=== PATIENT | female | born 1945 | race African-American/Black ===

== ENCOUNTER 2016-08-28 12:48 | Inpatient (IN) | payer MEDICARE, SELFPAY ==
[~2016-08-28] VITALS: Ht 162.6 cm; Wt 72.6 kg
[~2016-08-28 12:48] MED LIST: AZITHROMYCIN250 MG ORAL; PREDNISONE50 MG ORAL
--- NOTE | 2016-08-28 13:05 | Emergency Room Report ---
History of Present Illness General Chief Complaint: Overdose Source: Patient, EMS Present Illness HPI Patient was brought into the ER after a syncopal episode Patient reports feeling somewhat lightheaded and the next day she knows paramedics were at bedside Patient wasn't sure she took too many of her pain medications at the same time she does take pain medicine for shoulder pain Paramedics did provide patient with Narcan, to which the patient had acute reaction and GCS improved Denies any headache She had some shortness of breath sensation at this time denies any vomiting or diarrhea She has had increased swelling in her legs patient usually resides in [place] Denies any back or flank pain Allergies: Coded Allergies: No Known Allergies (Verified , 04/29/09) Patient History Past Medical History: see triage record Pertinent Family History: none Reviewed Nursing Documentation: PMH: Agreed, PSxH: Agreed Nursing Documentation-PMH Past Medical History: No History, Except For Hx Hypertension: Yes Hx COPD: Yes Hx Diabetes: Yes Review of Systems All Other Systems: negative except mentioned in HPI Physical Exam Vital Signs Date Time Temp Pulse Resp B/P Pulse Ox O2 Delivery O2 Flow Rate FiO2 08/28/16 12:42 98.2 83 16 116/78 94 Room Air Sp02 EP Interpretation: reviewed, normal General Appearance: no apparent distress Head: normocephalic, atraumatic Eyes: bilateral eye EOMI, bilateral eye PERRL ENT: hearing grossly normal, normal pharynx, TMs + canals normal, uvula midline Neck: full range of motion, supple, no meningismus, no bony tend Respiratory: no rhonchi, no retraction, no accessory muscle use, crackles - Along with wheezing bilaterally Cardiovascular #1: normal peripheral pulses, regular rate, rhythm, no gallop, no JVD, no murmur Gastrointestinal: normal bowel sounds, non tender, soft, no mass, no organomegaly, non-distended, no guarding, no hernia, no pulsatile mass, no rebound Genitourinary: no CVA tenderness Musculoskeletal: normal inspection Neurologic: oriented x3, responsive, slasher hand III-XII nml as tested, motor strength/ tone normal, sensory intact Psychiatric: mood/affect normal Skin: palpation normal, other - 2/4 Pain bilaterally Lymphatic: normal inspection, no adenopathy Medical Decision Making Diagnostic Impression: Primary Impression: Drug overdose Additional Impressions: Chronic renal failure COPD exacerbation Syncope Hyperkalemia ER Course Patient is a fairly complex patient with multiple differential to consideration including but not limited to cardiac cardiopulmonary and vascular emergencies Patient has done significantly better, at this time remains awake and alert Kidney function appears to be worsening from previous Potassium was also elevated Patient appears to have compensated mild CO2 retention Patient was provided with acute intervention her Stable for further inpatient care Labs Test 08/28/16 13:20 08/28/16 13:55 White Blood Count 7.3 K/UL (4.8-10.8) Red Blood Count 5.44 M/UL (4.20-5.40) Hemoglobin 13.9 G/DL (12.0-16.0) Hematocrit 45.6 % (37.0-47.0) Mean Corpuscular Volume 84 FL (80-99) Mean Corpuscular Hemoglobin 25.5 PG (27.0-31.0) Mean Corpuscular Hemoglobin Concent 30.4 G/DL (32.0-36.0) Red Cell Distribution Width 14.5 % (11.6-14.8) Platelet Count 104 K/UL (150-450) Mean Platelet Volume 9.9 FL (6.5-10.1) Neutrophils (%) (Auto) 78.8 % (45.0-75.0) Lymphocytes (%) (Auto) 13.3 % (20.0-45.0) Monocytes (%) (Auto) 6.3 % (1.0-10.0) Eosinophils (%) (Auto) 1.0 % (0.0-3.0) Basophils (%) (Auto) 0.6 % (0.0-2.0) Sodium Level 142 mEQ/L (135-145) Potassium Level 5.2 mEQ/L (3.4-4.9) Chloride Level 98 mEQ/L (98-107) Carbon Dioxide Level 23 mEQ/L (20-30) Anion Gap 21 (5-15) Blood Urea Nitrogen 53 mg/dL (7-23) Creatinine 2.2 mg/dL (0.5-0.9) Estimat Glomerular Filtration Rate 26.7 mL/min (>60) Glucose Level 162 mg/dL (74-106) Calcium Level 8.9 mg/dL (8.6-10.2) Total Bilirubin 0.3 mg/dL (0.0-1.2) Aspartate Amino Transf (AST/SGOT) 34 U/L (5-40) Alanine Aminotransferase (ALT/SGPT) 17 U/L (3-33) Alkaline Phosphatase 129 U/L (35-104) Total Creatine Kinase 58 U/L (26-140) Troponin I < 0.30 ng/mL (<=0.30) Total Protein 7.0 g/dL (6.6-8.7) Albumin 3.8 g/dL (3.5-5.2) Globulin 3.2 g/dL Albumin/Globulin Ratio 1.1 (1.0-2.7) Salicylates Level < 1 mg/dL (10-30) Acetaminophen Level < 10 ug/mL (10-30) Serum Alcohol < 10 mg/dL Arterial Blood pH 7.370 (7.350-7.450) Arterial Blood Partial Pressure CO2 53.2 mmHg (35.0-45.0) Arterial Blood Partial Pressure O2 53.2 mmHg (75.0-100.0) Arterial Blood HCO3 30.1 mmol/L (22.0-26.0) Arterial Blood Oxygen Saturation 86.0 % (92.0-98.0) Arterial Blood Base Excess 3.5 Yousuf Test Positive EKG Diagnostic Results Rate: normal Rhythm: NSR ST Segments: other - nonspecific ST and T-wave changes Rhythm Strip Diag. Results EP Interpretation: yes Rate: 66 Rhythm: NSR, no PVC's, no ectopy Chest X-Ray Diagnostic Results EP Interpretation: Yes Findings: no pneumothorax, other - Bilateral lower lung markings, increased congestion and cardiomegaly, abnormal x-ray Last Vital Signs Date Time Temp Pulse Resp B/P Pulse Ox O2 Delivery O2 Flow Rate FiO2 08/28/16 12:42 98.2 83 16 116/78 94 Room Air Status: improved Disposition: ADMITTED INPATIENT Condition: Serious Referrals: NOT CHOSEN ONEIL/,REFERRING (PCP) DAVON JOSUE D.O. Aug 28, 2016 13:05
[2016-08-28] MEDS ORDERED: Albuterol ud Inhalation HHN ONE (13:15)
[2016-08-28 13:36] LABS: BASOPHILS % (AUTO) 0.6 % (0.0-2.0); LYMPHOCYTES % (AUTO) 13.3 % (20.0-45.0); MEAN CORPUSCULAR HEMOGLOBIN 25.5 PG (27.0-31.0); MEAN CORPUSCULAR HGB CONC 30.4 G/DL (32.0-36.0); MEAN CORPUSCULAR VOLUME 84 FL (80-99); MEAN PLATELET VOLUME 9.9 FL (6.5-10.1); MONOCYTES % (AUTO) 6.3 % (1.0-10.0); NEUTROPHILS % (AUTO) 78.8 % (45.0-75.0); PLATELET COUNT 104 K/UL (150-450); RED BLOOD COUNT 5.44 M/UL (4.20-5.40); RED CELL DISTRIBUTION WIDTH 14.5 % (11.6-14.8); WHITE BLOOD COUNT 7.3 K/UL (4.8-10.8)
[2016-08-28 14:00] VITALS: BP 121/82
[2016-08-28 14:02] LABS: TROPONIN I < 0.30 ng/mL (<=0.30)
[2016-08-28 14:03] LABS: ABG ALLEN TEST POSITIVE; ABG BASE EXCESS 3.5; ABG PCO2 53.2 mmHg (35.0-45.0)
[2016-08-28 14:06] LABS: ACETAMINOPHEN < 10 ug/mL (10-30); ALANINE AMINOTRANSFERASE 17 U/L (3-33); ALBUMIN/GLOBULIN RATIO 1.1 (1.0-2.7); ALCOHOL < 10 mg/dL; ANION GAP 21 (5-15); ASPARTATE AMINO TRANSFERASE 34 U/L (5-40); CALCIUM 8.9 mg/dL (8.6-10.2); CARBON DIOXIDE 23 mEQ/L (20-30); CHLORIDE 98 mEQ/L (98-107); CREATININE 2.2 mg/dL (0.5-0.9); GLOMERULAR FILTRATION RATE 26.7 mL/min (>60); HEMOLYSIS 127; POTASSIUM 5.2 mEQ/L (3.4-4.9); SODIUM 142 mEQ/L (135-145)
[2016-08-28] MEDS ORDERED: OXYCODON-ACETA1 EAC2 ORAL (14:08)
[2016-08-28] MEDS ORDERED: XANAX2 MG ORAL (14:08)
[2016-08-28] MEDS ORDERED: LYRICA75 M1 ORAL (14:08)
[2016-08-28] MEDS ORDERED: CARVEDILOL25 MG ORAL (14:08)
[2016-08-28] MEDS ORDERED: POTASSIUM99 M3 PO (14:08)
[2016-08-28] MEDS ORDERED: FUROSEMIDE40 MG ORAL (14:08)
[2016-08-28] MEDS ORDERED: [UNRECOGNIZED DRUG - REMARK] (14:08)
[2016-08-28] MEDS ORDERED: [UNRECOGNIZED DRUG - REMARK] (14:08)
[2016-08-28] MEDS ORDERED: ASPIRIN81 MG ORAL (14:08)
[2016-08-28] MEDS ORDERED: Sodium Polystyrene Sulfonate 15gm Powder ORAL ONE (14:15)
[2016-08-28 14:45] VITALS: BP 131/71
[2016-08-28 16:30] VITALS: BP 130/70
[2016-08-28] MEDS ORDERED: DuoNeb 0.5-3(2.5)mg/3ml neb HHN PRN (17:30)
[2016-08-28] MEDS: Carvedilol 25mg Tab ORAL SCH ×2 (17:54→21:00)
[2016-08-28] MEDS: Lyrica 75mg cap ORAL SCH (17:55)
[2016-08-28 20:00] VITALS: BP 113/75
[2016-08-28] MEDS: Heparin 5000 units/ml inj SUBQ SCH (21:00)
[2016-08-29] VITALS: BP_SYST 105; BP_SYST 140; BP_DIAS 53; BP_DIAS 73
[2016-08-29 04:00] VITALS: BP 110/58
[2016-08-29 07:30] LABS: ALBUMIN/GLOBULIN RATIO 1.2 (1.0-2.7); CALCIUM 8.3 mg/dL (8.6-10.2); CREATININE 2.1 mg/dL (0.5-0.9); GLOMERULAR FILTRATION RATE 28.2 mL/min (>60); POTASSIUM 3.5 mEQ/L (3.4-4.9)
[2016-08-29 07:37] LABS: BASOPHILS % (AUTO) 0.6 % (0.0-2.0); MEAN CORPUSCULAR HEMOGLOBIN 25.8 PG (27.0-31.0); MEAN CORPUSCULAR HGB CONC 30.7 G/DL (32.0-36.0); MEAN CORPUSCULAR VOLUME 84 FL (80-99); MEAN PLATELET VOLUME 9.4 FL (6.5-10.1); MONOCYTES % (AUTO) 9.6 % (1.0-10.0); NEUTROPHILS % (AUTO) 59.8 % (45.0-75.0); PLATELET COUNT 117 K/UL (150-450); RED BLOOD COUNT 4.99 M/UL (4.20-5.40); RED CELL DISTRIBUTION WIDTH 14.7 % (11.6-14.8); WHITE BLOOD COUNT 6.3 K/UL (4.8-10.8)
[2016-08-29 07:42] LABS: TROPONIN I < 0.30 ng/mL (<=0.30)
[2016-08-29 08:00] VITALS: BP 134/77
--- NOTE | 2016-08-29 08:29 | History and Physical Report ---
DATE OF ADMISSION: 08/28/2016 CHIEF COMPLAINT: Syncope. HISTORY OF PRESENT ILLNESS: The patient is a 71-year-old female, she has a history of hypertension, congestive heart failure, "kidney problems" who presented with complaints of a syncopal episode. She is currently visiting from [place]. She is with her daughter who is being . On the day of admission, she was on the couch and she apparently had a syncopal episode. She remembers only waking up in the ambulance. Initial workup in the emergency room showed some renal insufficiency, but the rest of the laboratory work was unremarkable. She was noted to have elevated natriuretic peptide level 4000. She is now admitted for further evaluation and care. According to the patient, she has had a productive cough with green phlegm for several days, but she states she has been eating and drinking well. She denies any diarrhea. She has had no nausea or vomiting. PAST MEDICAL HISTORY: As above. PAST SURGICAL HISTORY: None. MEDICATIONS: Current medications reconciled and reviewed. ALLERGIES: None. SOCIAL HISTORY: The patient smokes cigarettes. No alcohol. No drugs. FAMILY HISTORY: None. REVIEW OF SYSTEMS: General: No fever or chills. HEENT: No headaches or visual changes. Cardiopulmonary: No chest pain or shortness of breath. Gastrointestinal: No nausea or frequency. Musculoskeletal: No dependent swelling. Neurologic: No history of seizures. PHYSICAL EXAMINATION: VITAL SIGNS: Temperature 98.0 degrees, blood pressure 110/58, pulse of 57, and respirations 20. GENERAL: The patient is a well-developed, well-nourished, in no apparent distress. HEART: Regular rate and rhythm. LUNGS: Significant for rhonchi and wheezes. ABDOMEN: Soft, nontender, and nondistended. EXTREMITIES: Without clubbing, cyanosis, or edema. LABORATORY DATA: Sodium 142, potassium 5.2, chloride of 98, bicarbonate 23, BUN 53, creatinine 2.2, and glucose of 162. Natriuretic peptide level is 3800. ABG showed pH of 7.37, pCO2 of 53, pO2 of 53, bicarbonate of 50, and O2 saturating 86%. The white count was 7, hemoglobin 13, hematocrit 45, and platelets of 104,000. ASSESSMENT: This is a pleasant female with complaints of syncope. 1. Syncope. 2. Dehydration. 3. Acute on chronic renal failure. 4. Elevated natriuretic peptide acid. 5. History of congestive heart failure. 6. Hypertension. 7. Bronchospasm. PLAN: Cautious hydration. Follow chest x-ray. Check her carotid duplex and echocardiogram. Check venous duplex. Supplemental oxygen. Respiratory treatments. Empiric antibiotic therapy. Cardiology and Pulmonary consultations were obtained. Bertin Ruggiero M.D. DR: Barbara JOB#: [id number] CC:
[2016-08-29] MEDS: cefTRIAXone 1 GM in D5W 55 ML IVPB SCH (08:52)
[2016-08-29] MEDS: Carvedilol 25mg Tab ORAL SCH ×2 (08:53→22:00)
[2016-08-29] MEDS: Aspirin Baby 81mg ORAL SCH (08:53)
[2016-08-29] MEDS: Heparin 5000 units/ml inj SUBQ SCH ×2 (08:53→22:14)
[2016-08-29] MEDS: Lyrica 75mg cap ORAL SCH ×3 (08:54→17:46)
[2016-08-29] MEDS: Promethazine/Codeine 5ml UD ORAL PRN ×3 (08:56→22:15)
[2016-08-29] MEDS ORDERED: Influenza Virus Vaccine 0.5ml IM ONE (09:00)
[2016-08-29] MEDS ORDERED: Pneumococcal Vaccine 25mcg/0.5ml IM ONE (09:00)
[2016-08-29] MEDS: DuoNeb 0.5-3(2.5)mg/3ml neb HHN SCH ×3 (10:17→19:00)
[2016-08-29] MEDS: Oxycodone/Acetaminophen 5-325 ORAL PRN ×3 (10:18→22:15)
[2016-08-29 12:00] VITALS: BP 125/77
--- NOTE | 2016-08-29 12:23 | Cardiology Report ---
APPROVED REPORT EKG Measurement Heart [id number] Normal sinus rhythm Rightward axis Possible Anterior infarct, age undetermined Abnormal ECG
[2016-08-29 16:00] VITALS: BP 116/67
[2016-08-29 20:00] VITALS: BP 116/64
[2016-08-30] VITALS: BP 127/79
[2016-08-30] MEDS: DuoNeb 0.5-3(2.5)mg/3ml neb HHN SCH ×4 (01:00→19:00)
--- NOTE | 2016-08-30 02:19 | Consultation ---
DATE OF CONSULTATION: 08/28/2016 CARDIOLOGY CONSULTATION CONSULTING PHYSICIAN: Misha Koo M.D. REQUESTING PHYSICIAN: Bertin Ruggiero M.D. REASON FOR CONSULTATION: Syncope in the setting of underlying cardiomyopathy. HISTORY OF PRESENT ILLNESS: This is a 71-year-old female, visiting her daughter from [place]. She was lightheaded earlier today and then was lying down on the couch, apparently passed out, and the next thing she knew was in ambulance with paramedics. She recalls taking almost all her medications together that morning including a pain medication. The patient was given Narcan by the paramedics and apparently had a reaction. She was alert however. She has had increasing swelling in her legs for several days. She also has had some shortness of breath. The patient has been undergoing a cardiac workup in [place] prior to her trip here. She has had many tests "ordered." So far, she completed only dobutamine echocardiogram, but does not know the results. Other tests were scheduled next week. PAST MEDICAL HISTORY: 1. Hypertension. 2. Cardiomyopathy. 3. History of congestive heart failure. 4. Chronic obstructive pulmonary disease. 5. Type 2 diabetes mellitus. 6. Chronic kidney disease. ALLERGIES: None. FAMILY HISTORY: Noncontributory. SOCIAL HISTORY: She denies smoking, alcohol, or substance abuse at this time. REVIEW OF SYSTEMS: She did have a cold with congestion recently. No fevers or chills. No loss of vision or hearing. No history of retinopathy. Diabetes managed with oral therapy. No history of seizures or strokes. No dysuria or frequency. She does have some mild kidney disease. There is no history of asthma or blood clots in the legs. PHYSICAL EXAM: GENERAL: Appears well for her age. Presently, in no acute distress, VITAL SIGNS: Blood pressure 116/78, pulse 83, respirations 16, and afebrile. Oxygen saturation 94% on room air. HEENT: Normocephalic and atraumatic. Conjunctivae pink. Sclerae are anicteric. Oropharynx clear. Mucous membranes dry. NECK: Supple. Jugular venous pressure normal. Carotid upstrokes without delay. LUNGS: Diminished breath sounds. No wheezing. CARDIAC: Regular rhythm and rate. Normal S1 and S2 with a fourth heart sound. ABDOMEN: Soft and nontender. No guarding or rebound. EXTREMITIES: Good pulses and trace edema. LABORATORY AND DIAGNOSTIC DATA: EKG, sinus rhythm, rightward axis, possible anterior infarction of indeterminate age, and nonspecific ST-T wave changes. Sodium 142, potassium 5.2, BUN 53, creatinine 2.2, and bicarb 23. Troponin negative. Albumin 3.8. White count 7.3 and hemoglobin 13.9. IMPRESSION: 1. Syncope, possibly due to hypovolemia and hypoperfusion. 2. Acute on chronic renal failure with prerenal azotemia. 3. Mild hyperkalemia. 4. Cardiomyopathy. 5. Acute and chronic diastolic congestive heart failure. PLAN: 1. Cautious hydration. 2. No diuretics. 3. Cardiac monitoring. 4. Anti-platelet therapy with aspirin. 5. DVT prophylaxis. 6. We will attempt to obtain results of recent cardiac workup. May need to pursue further cardiac ischemia studies prior to discharge. Misha Koo M.D. DR: ELGIN JOB#: [id number] CC:
--- NOTE | 2016-08-30 02:59 | Progress Note ---
DATE: 08/29/2016 CARDIOLOGY PROGRESS NOTE SUBJECTIVE: The patient reaffirmed that on cardiac workup has been in progress in [place]. She had a stress echo study with dobutamine but she does not know the results. Several other studies are scheduled and planned, which she has not completed. The patient denies chest pain, dizziness, or shortness of breath. Monitored rhythm, sinus. OBJECTIVE: VITAL SIGNS: Blood pressure 116/64, heart rate 60, and respirations 18. She is afebrile. NECK: Supple. Normal carotid upstrokes. LUNGS: Clear. CARDIAC: Regular rhythm and rate. Normal S1 and S2 with a fourth heart sound. ABDOMEN: Soft and nontender. EXTREMITIES: Without edema. LABORATORY AND DIAGNOSTIC DATA: Electrocardiogram showed sinus rhythm, left ventricular hypertrophy with repolarization changes, cannot exclude inferolateral ischemia. White count 6.3 and hemoglobin 12.9. Potassium 3.5, sodium 146, bicarbonate 30, BUN 49, and creatinine 2.1. Pro-natriuretic peptide was 3889 yesterday. Albumin is 3.3. IMPRESSION: 1. Syncope possibly due to hypovolemia and hypoperfusion. 2. Dehydration. 3. Hypernatremia. 4. Acute on chronic diastolic congestive heart failure. 5. Mild protein-calorie malnutrition. 6. Cardiomyopathy etiology unclear. PLAN: 1. Continue aspirin prophylaxis. 2. Cautious use of beta-jorge. 3. Cautiously hydrate. 4. No diuretics at this time. 5. Reassess for angiotensin-converting enzyme inhibitor therapy once rehydrated. 6. Followup cardiorenal parameters. Misha Koo M.D. DR: MILI JOB#: [id number] CC:
[2016-08-30 04:00] VITALS: BP 162/86
[2016-08-30] MEDS: Oxycodone/Acetaminophen 5-325 ORAL PRN ×3 (05:43→16:25)
--- NOTE | 2016-08-30 06:00 | General Progress Note ---
Assessment/Plan Problem List: (1) COPD exacerbation (2) acute bronchitis (3) Chronic renal failure (4) Hyperkalemia ICD Codes: E87.5 - Hyperkalemia SNOMED: 54051586 (5) Syncope ICD Codes: R55 - Syncope and collapse SNOMED: 750783824 Status: stable, progressing Assessment/Plan iv steroids resp rx iv abx ordered syncope w/u in progress Subjective ROS Limited/Unobtainable: No Constitutional: Reports: malaise, weakness HEENT: Reports: no symptoms Cardiovascular: Reports: chest pain Respiratory: Reports: cough, shortness of breath, wheezing Gastrointestinal/Abdominal: Reports: no symptoms Genitourinary: Reports: no symptoms Neurologic/Psychiatric: Reports: no symptoms Endocrine: Reports: no symptoms Hematologic/Lymphatic: Reports: no symptoms Allergies: Coded Allergies: No Known Allergies (Verified , 04/29/09) All Systems: reviewed and negative except above Subjective no dizziness. c/o right sided CP. +reproducible. no dizziness. +congestion Objective Last 24 Hour Vital Signs Date Time Temp Pulse Resp B/P Pulse Ox O2 Delivery O2 Flow Rate FiO2 08/30/16 03:08 62 20 Nasal Cannula 2.0 28 08/30/16 01:30 20 08/30/16 01:30 20 08/30/16 00:00 98.6 70 18 127/79 97 Nasal Cannula 2.0 08/30/16 00:00 66 08/29/16 22:00 60 116/64 08/29/16 20:00 61 08/29/16 20:00 97.5 60 18 116/64 98 Room Air 08/29/16 19:30 Nasal Cannula 2.0 28 08/29/16 19:30 70 20 95 Nasal Cannula 2.0 28 08/29/16 19:30 60 20 94 Nasal Cannula 2.0 28 08/29/16 19:30 97 Nasal Cannula 2.0 28 08/29/16 19:30 62 20 Nasal Cannula 2.0 28 08/29/16 18:45 97.5 08/29/16 18:45 97.5 08/29/16 16:00 70 08/29/16 16:00 97.3 60 18 116/67 Nasal Cannula 08/29/16 13:28 28 08/29/16 13:28 60 19 96 Nasal Cannula 2.0 28 08/29/16 13:28 65 20 96 Nasal Cannula 2.0 28 08/29/16 12:00 97.0 55 18 125/77 95 Nasal Cannula 2.0 08/29/16 12:00 54 08/29/16 10:26 67 20 97 Nasal Cannula 2.0 28 08/29/16 10:17 97 Nasal Cannula 2.0 28 08/29/16 10:17 Nasal Cannula 2.0 28 08/29/16 10:17 64 19 97 Nasal Cannula 2.0 28 08/29/16 10:17 64 19 Nasal Cannula 2.0 28 08/29/16 10:17 28 08/29/16 08:53 68 134/77 08/29/16 08:00 59 08/29/16 08:00 96.8 68 18 134/77 97 Nasal Cannula 2.0 Intake and Output 08/29/16 08/30/16 19:00 07:00 Intake Total 1315 ml 300 ml Output Total 520 ml 900 ml Balance 795 ml -600 ml Intake Oral 680 ml IV Total 635 ml 300 ml Output Urine Total 520 ml 900 ml Height (Feet): 5 Height (Inches): 4.00 Weight (Pounds): 160 General Appearance: WD/WN Neck: normal alignment Cardiovascular: normal rate Respiratory/Chest: rhonchi - bilaterally, expiratory wheezing, other - reproducible right sided chest wall pain Abdomen: normal bowel sounds, non tender, soft, no organomegaly Edema: no edema noted Arm (L), no edema noted Arm (R), no edema noted Leg (L), no edema noted Leg (R), no edema noted Pedal (L), no edema noted Pedal (R), no edema noted Generalized ERMIAS MATTA Aug 30, 2016 06:00
[2016-08-30] MEDS: Solu-MEDROL 40mg Inj IVP SCH ×3 (06:24→17:59)
[2016-08-30] MEDS: Aspirin Baby 81mg ORAL SCH (08:24)
[2016-08-30] MEDS: Heparin 5000 units/ml inj SUBQ SCH ×2 (08:26→21:23)
[2016-08-30] MEDS: Promethazine/Codeine 5ml UD ORAL PRN (08:28)
[2016-08-30] MEDS: Carvedilol 25mg Tab ORAL SCH ×2 (08:29→21:21)
[2016-08-30] MEDS: Lyrica 75mg cap ORAL SCH ×3 (08:31→18:01)
[2016-08-30 08:35] VITALS: BP 151/73
[2016-08-30] MEDS: cefTRIAXone 1 GM in D5W 55 ML IVPB SCH (09:30)
[2016-08-30 11:41] VITALS: BP 149/72
--- NOTE | 2016-08-30 12:56 | Diagnostic Imaging Report ---
Indication: SOB Technique: One view of the chest Comparison: : 08/05/13 Findings: The patient is slightly rotated to the right. There is some fullness to the left pulmonary hilar region, probably exaggerated by the patient rotation. Is mild central interstitial prominence and bronchial wall thickening. End of atelectasis or scarring is seen in the right midlung. No definite acute infiltrates, effusions, or congestion. The heart size is normal Impression: No definite acute process. Findings as noted This agrees with the preliminary interpretation provided by the emergency room physician
--- NOTE | 2016-08-30 12:57 | Diagnostic Imaging Report ---
Indication: Acute renal failure Technique: Grayscale and duplex images of the kidneys, retroperitoneum, and bladder were obtained. Comparison:None Findings: Right kidney measures 8 cm in length. Left kidney measures 10 cm in length. Right kidney demonstrates slightly increased echogenicity. No hydronephrosis. Left kidney demonstrates a 16 mm lower pole cyst. Normal inferior vena cava. Bladder is empty, contains a Colón catheter. Impression: Negative for hydronephrosis Mildly increased right renal echogenicity, could indicate early medical renal disease Empty bladder, containing a Colón catheter Incidental finding left lower pole renal cyst.
[2016-08-30 16:00] VITALS: BP 150/69
[2016-08-30] MEDS ORDERED: Tubing IV Secondary IV ONE (18:41)
[2016-08-30 20:00] VITALS: BP 122/90
[2016-08-31 00:27] VITALS: BP 165/94
[2016-08-31] MEDS: Solu-MEDROL 40mg Inj IVP SCH ×2 (00:36→05:33)
[2016-08-31] MEDS: DuoNeb 0.5-3(2.5)mg/3ml neb HHN SCH ×2 (01:55→08:00)
--- NOTE | 2016-08-31 03:49 | Progress Note ---
DATE: 08/30/2016 CARDIOLOGY PROGRESS NOTE SUBJECTIVE: The patient denies dizziness. No loss of consciousness. She has discomfort in her right chest. She is congested and coughing. OBJECTIVE: VITAL SIGNS: Blood pressure 127/79, heart rate 70, respiratory rate 18, afebrile. Monitored rhythm sinus. LUNGS: Coarse breath sounds. Few rhonchi. Reproducible right chest wall pain. HEART: Regular rhythm and rate. Normal S1, S2 with a fourth heart sound. ABDOMEN: Soft. No edema. DIAGNOSTIC DATA: Carotid duplex scan reveals mild plaquing bilaterally, less than 30%. IMPRESSION: 1. Acute on chronic renal failure. 2. Vasovagal syncope. 3. Acute bronchitis. 4. Chronic obstructive pulmonary disease exacerbation. 5. Noncardiac/pleuritic chest pain. 6. Abnormal EKG. 7. Hypertensive heart disease. 8. Possible coronary artery disease. PLAN: Echocardiogram. Titrate anti-failure and antihypertensives. Steroids. Bronchodilators. Obtain records to assess recent stress echo results. Cautious hydration. Follow up renal function. Misha Koo M.D. DR: Rossy JOB#: [id number] CC:
[2016-08-31 04:22] VITALS: BP 142/78
[2016-08-31] MEDS: Oxycodone/Acetaminophen 5-325 ORAL PRN ×2 (05:33→10:10)
[2016-08-31 08:01] LABS: MEAN CORPUSCULAR HEMOGLOBIN 26.1 PG (27.0-31.0); MEAN CORPUSCULAR HGB CONC 30.1 G/DL (32.0-36.0); MEAN CORPUSCULAR VOLUME 87 FL (80-99); MEAN PLATELET VOLUME 7.9 FL (6.5-10.1); PLATELET COUNT 131 K/UL (150-450); RED BLOOD COUNT 5.06 M/UL (4.20-5.40); RED CELL DISTRIBUTION WIDTH 14.1 % (11.6-14.8); WHITE BLOOD COUNT 12.6 K/UL (4.8-10.8)
[2016-08-31 08:04] VITALS: BP 134/79
[2016-08-31 08:20] LABS: CREATININE 1.9 mg/dL (0.5-0.9); GLOMERULAR FILTRATION RATE 31.6 mL/min (>60); MAGNESIUM 1.3 mg/dL (1.7-2.5); POTASSIUM 3.6 mEQ/L (3.4-4.9)
[2016-08-31] MEDS ORDERED: LEVAQUIN250 M1 ORAL (08:28)
[2016-08-31 08:59] VITALS: BP 134/79
[2016-08-31] MEDS: Lyrica 75mg cap ORAL SCH (08:59)
[2016-08-31] MEDS: Aspirin Baby 81mg ORAL SCH (08:59)
[2016-08-31] MEDS: Carvedilol 25mg Tab ORAL SCH (08:59)
[2016-08-31] MEDS: Heparin 5000 units/ml inj SUBQ SCH (09:00)
[2016-08-31] MEDS: cefTRIAXone 1 GM in D5W 55 ML IVPB SCH (09:00)
[2016-08-31] MEDS: Promethazine/Codeine 5ml UD ORAL PRN (09:02)
[2016-08-31 10:42] LABS: BAND NEUTROPHILS % (MANUAL) 1 % (0-8); BASOPHILS % (MANUAL) 0 % (0-2); EOSINOPHILS % (MANUAL) 0 % (0-3); LYMPHOCYTES % (MANUAL) 8 % (20-45); NEUTROPHILS % (MANUAL) 90 % (45-75); PLATELET ESTIMATE DECREASED; PLATELET MORPHOLOGY NORMAL; TOTAL CELLS COUNTED 100
[2016-08-31 10:43] LABS: HYPOCHROMASIA 1+
--- NOTE | 2016-08-31 22:00 | Discharge Summary ---
DATE OF ADMISSION: 08/28/2016 DATE OF DISCHARGE: 08/31/2016 ADMISSION DIAGNOSES: 1. Syncope. 2. Dehydration. 3. Chronic kidney disease. 4. Hypertension. 5. History of neuropathy. 6. Chronic obstructive pulmonary disease. DISCHARGE DIAGNOSES: 1. Syncope. 2. Dehydration. 3. Chronic kidney disease. 4. Hypertension. 5. History of neuropathy. 6. Chronic obstructive pulmonary disease. 7. Bronchitis. HOSPITAL COURSE: The patient is a pleasant female, who presented with a syncopal episode while on the couch. She was admitted and she was diagnosed with chronic obstructive pulmonary disease exacerbation. She received intravenous steroids and respiratory treatments. She was placed on antibiotics. X-ray was negative. She was seen by Cardiology and felt that the syncope was likely vasovagal, possibly in combination with some of her medications. It was recommended that the patient undergo an echo and a stress test, which she declined stating that she has an appointment already in two days with her [facility] in [place] and she requested that the test to be done as an outpatient with her [facility], who apparently had already scheduled the procedure. She was offered the procedure here, but she declined. The patient was stable. She will be discharged on oral steroids and oral antibiotics. Her son will drive her back home where she will follow up with her [facility] on Monday. DISCHARGE MEDICATIONS: Please see discharge medication list for discharge medications. DIET: Cardiac diet. ACTIVITIES: Ad-valery. Bertin Ruggiero M.D. DR: BETI JOB#: [id number] CC:
--- NOTE | 2016-09-01 02:09 | Progress Note ---
DATE: 08/31/2016 CARDIOLOGY PROGRESS NOTE: SUBJECTIVE: The patient has no chest pain. No shortness of breath. She remains off diuretics. She has been hydrated by IV fluids. Her renal function has improved, however, her natriuretic peptide levels have increased. OBJECTIVE: VITAL SIGNS: Blood pressure 134/79, heart rate 67, respiratory rate 18, and room air oxygen saturation 94% to 98%. LUNGS: Clear. CARDIAC: Regular rhythm and rate. Normal S1 and S2 with a fourth heart sound. ABDOMEN: Soft. No edema. LABORATORY DATA: Potassium 3.6, BUN 41, creatinine 1.9. Pro-natriuretic peptide 12,000. Magnesium 1.3. IMPRESSION: 1. Syncope, likely due to dehydration and hypovolemia. 2. Acute on chronic renal failure due to above. 3. Hypertensive heart disease with controlled blood pressure. 4. Acute on chronic diastolic congestive heart failure. 5. Chronic obstructive pulmonary disease. PLAN: We will need to have a close balance between volume overload versus hypovolemic status in this clinical setting. The patient obviously had some underlying kidney disease and diastolic dysfunction. At this time, I do not recommend resumption of diuretics. She will follow up to complete her cardiac workup with her primary product safety lead that will include an ischemia workup as well, which has been partially completed and the results of which are not known to us presently. The patient will be on oral magnesium replacement and steroid taper. She has been advised to seek close regular medical followup. Misha Koo M.D. DR: Rossy JOB#: [id number] CC:
--- NOTE | 2016-09-02 21:48 | Diagnostic Imaging Report ---
APPROVED REPORT CPT Code: 05867 Vascular Symptoms Syncope Doppler Spectral Velocity Analysis RightLeft BILATERAL: CCA - Imaging reveals no significant plaque in the right and left common external carotid arteries. The Doppler signal indicates the degree of stenosis is minimal (30%) in the right internal and external carotid arteries, and (10-20%) in the left internal and external carotid arteries. VERTEBRAL- The vertebral arteries are patent without evidence of stenosis or steal.
== END 2016-08-31 10:14 | disposition home or self-care (01) | DRG 640 ==
LOC: EDBD 12:48 → EDSEX 12:48 → EMR 13:01 → 2E 13:07 → EDBEDREQ 13:33 → 2E 08-30 00:28
DX: E86.0 Dehydration (principal); I50.33 Acute on chronic diastolic (congestive) heart failure; N17.9 Acute kidney failure, unspecified; J44.0 Chronic obstructive pulmonary disease with (acute) lower respiratory infection; E44.1 Mild protein-calorie malnutrition; I42.9 Cardiomyopathy, unspecified; G62.9 Polyneuropathy, unspecified; I13.0 Hypertensive heart and chronic kidney disease with heart failure and stage 1 through stage 4 chronic kidney disease, or unspecified chronic kidney disease; J44.1 Chronic obstructive pulmonary disease with (acute) exacerbation; E87.5 Hyperkalemia; R55 Syncope and collapse; N18.9 Chronic kidney disease, unspecified; J20.9 Acute bronchitis, unspecified; E86.1 Hypovolemia; E11.9 Type 2 diabetes mellitus without complications; I25.10 Atherosclerotic heart disease of native coronary artery without angina pectoris
CPT/HCPCS: 36415; 36600; 71010; 76775; 80053; 80329; 82550; 82803; 83735; 83880; 84484; 85007; 85025; 90732; 93005; 93880; 94640; 94664; 94760; J7620; Q2036